=== PATIENT | female | born 1980 | race Two or more races ===

== ENCOUNTER 2017-11-19 14:09 | Emergency (ER) | payer OTHER, SELFPAY ==
[~2017-11-19] VITALS: Ht 154.9 cm; Wt 95.4 kg
[2017-11-19 14:15] VITALS: BP 149/106
[2017-11-19] MEDS ORDERED: PROPARACAINE OPHTH 0.5%, 15ML ONE (14:25)
[2017-11-19] MEDS ORDERED: DIPH,PERTUSS(ACELL),TET VAC/PF 0.5 ML IM-VACC ONE ×2 (15:02→15:30)
== END 2017-11-19 15:11 | disposition home or self-care (01) ==
LOC: ED 15:00
DX: S05.02XA Injury of conjunctiva and corneal abrasion without foreign body, left eye, initial encounter (principal); X58.XXXA Exposure to other specified factors, initial encounter; Y93.89 Activity, other specified; Y92.89 Other specified places as the place of occurrence of the external cause; Y99.8 Other external cause status
CPT/HCPCS: 90471; 90715

== ENCOUNTER 2018-02-13 20:38 | Emergency (ER) | payer OTHER ==
[~2018-02-13] VITALS: Ht 154.9 cm; Wt 97.0 kg
[2018-02-13 20:40] VITALS: BP 139/97
[2018-02-13] MEDS ORDERED: FLUORESCEIN/BENOXINATE 5 ML DROPS OP ONE (21:00)
== END 2018-02-13 21:33 | disposition home or self-care (01) ==
LOC: ED 21:05
DX: S05.02XA Injury of conjunctiva and corneal abrasion without foreign body, left eye, initial encounter (principal); X58.XXXA Exposure to other specified factors, initial encounter; Y93.89 Activity, other specified; Y92.89 Other specified places as the place of occurrence of the external cause; Y99.8 Other external cause status
CPT/HCPCS: 99283

== ENCOUNTER 2019-03-07 10:30 | Emergency (ER) | payer OTHER ==
[~2019-03-07] VITALS: Ht 154.9 cm; Wt 101.0 kg
[2019-03-07 10:31] VITALS: BP 138/85
[2019-03-07 10:59] LABS: MICROSCOPIC NOT IND
[2019-03-07 12:02] LABS: CULTURE INDICATED? NO
--- NOTE | 2019-03-07 12:03 | NUR ---
LAB CALLED REGARDING DELAY ON URINALYSIS. PER TECH, COMPUTER DELAY. CONTINUE TO AWAIT RESULTS.
== END 2019-03-07 12:40 | disposition home or self-care (01) ==
LOC: ED 12:32
DX: S39.012A Strain of muscle, fascia and tendon of lower back, initial encounter (principal); I10 Essential (primary) hypertension; X58.XXXA Exposure to other specified factors, initial encounter; Y93.89 Activity, other specified; Y92.89 Other specified places as the place of occurrence of the external cause; Y99.8 Other external cause status
CPT/HCPCS: 81003; 99283

== ENCOUNTER 2019-07-18 17:31 | Emergency (ER) | payer OTHER ==
[~2019-07-18] VITALS: Ht 154.9 cm; Wt 103.7 kg
[2019-07-18 18:00] VITALS: BP 174/115
[2019-07-18] MEDS ORDERED: HYDROcodone/APAP 5/325 TABLET PO ONE (18:30)
[2019-07-18] MEDS ORDERED: HYDROcodone/APAP 5/325 TABLET ONE (18:37)
== END 2019-07-18 19:27 | disposition home or self-care (01) ==
LOC: ED 19:00
DX: K04.7 Periapical abscess without sinus (principal); I10 Essential (primary) hypertension; F17.200 Nicotine dependence, unspecified, uncomplicated
CPT/HCPCS: 99282

== ENCOUNTER 2019-12-17 13:49 | Emergency (ER) | payer OTHER ==
[~2019-12-17] VITALS: Ht 154.9 cm; Wt 100.0 kg
[2019-12-17 16:06] LABS: BASOPHILS # (AUTO) 0.03 x10^3/uL (0-0.1); BASOPHILS % (AUTO) 1 % (0-1); EOSINOPHILS # (AUTO) 0.25 x10^3/uL (0-0.4); EOSINOPHILS % (AUTO) 3 % (1-7); LYMPHOCYTES # (AUTO) 2.75 x10^3/uL (1-3.4); LYMPHOCYTES % (AUTO) 36 % (22-44); MD NO; MEAN CORPUSCULAR HEMOGLOBIN 26.1 pg (27.0-34.8); MEAN CORPUSCULAR HGB CONC 32.7 g/dL (32.4-35.8); MEAN CORPUSCULAR VOLUME 79.6 fL (80-100); MEAN PLATELET VOLUME 8.3 fL (7.4-10.4); MONOCYTES % (AUTO) 7 % (2-9); NEUTROPHILS # (AUTO) 4.04 x10^3/uL (1.8-6.8); NEUTROPHILS % (AUTO) 53 % (42-75); PLATELET COUNT 373 x10^3/uL (130-400); RED BLOOD COUNT 5.19 x10^6/uL (3.82-5.3)
[2019-12-17 16:13] LABS: ALBUMIN 3.6 g/dL (3.4-5.0); ANION GAP 8 mmol/L (5-15); CALCIUM 9.4 mg/dL (8.5-10.1); CHLORIDE 104 mmol/L (98-107)
[2019-12-17 16:19] VITALS: BP 113/92
== END 2019-12-17 17:32 | disposition home or self-care (01) ==
LOC: ED 15:51
DX: R06.00 Dyspnea, unspecified (principal); Z20.828 Contact with and (suspected) exposure to other viral communicable diseases; R50.9 Fever, unspecified; R05 Cough; R94.31 Abnormal electrocardiogram [ECG] [EKG]; I10 Essential (primary) hypertension
CPT/HCPCS: 36415; 71045; 80048; 82040; 85025; 87635; 93005; 99285

== ENCOUNTER 2020-05-01 13:13 | Emergency (ER) | payer OTHER ==
[~2020-05-01] VITALS: Ht 154.9 cm; Wt 109.7 kg
[2020-05-01 13:17] VITALS: BP 130/80
[2020-05-01] MEDS ORDERED: HYDROcodone/APAP 5/325 TABLET ONE (13:40)
[2020-05-01] MEDS ORDERED: HYDROcodone/APAP 5/325 TABLET PO ONE (14:00)
== END 2020-05-01 13:56 | disposition home or self-care (01) ==
LOC: ED 13:35
DX: K02.9 Dental caries, unspecified (principal); K08.89 Other specified disorders of teeth and supporting structures; R50.9 Fever, unspecified
CPT/HCPCS: 99283

== ENCOUNTER 2020-07-28 21:08 | Emergency (ER) | payer OTHER ==
[~2020-07-28] VITALS: Ht 154.9 cm; Wt 111.0 kg
[2020-07-28 21:12] VITALS: BP 143/96
[2020-07-28] MEDS ORDERED: HYDROcodone/APAP 5/325 TABLET ONE (22:20)
[2020-07-28] MEDS ORDERED: HYDROcodone/APAP 5/325 TABLET PO ONE (22:30)
== END 2020-07-28 22:30 | disposition home or self-care (01) ==
LOC: ED 22:10
DX: K02.9 Dental caries, unspecified (principal); R51.9 Headache, unspecified
CPT/HCPCS: 99283

== ENCOUNTER 2020-11-01 18:55 | Emergency (ER) | payer OTHER ==
[~2020-11-01] VITALS: Ht 162.6 cm; Wt 105.0 kg
[2020-11-01 19:40] LABS: BASOPHILS % (AUTO) 1 % (0-1); EOSINOPHILS % (AUTO) 0 % (1-7); LYMPHOCYTES % (AUTO) 21 % (22-44); MEAN CORPUSCULAR HEMOGLOBIN 24.2 pg (27.0-34.8); MEAN CORPUSCULAR HGB CONC 32.2 g/dL (32.4-35.8); MONOCYTES % (AUTO) 3 % (2-9); NEUTROPHILS % (AUTO) 75 % (42-75); PLATELET COUNT 353 x10^3/uL (130-400); RED BLOOD COUNT 5.08 x10^6/uL (3.82-5.3); RED CELL DISTRIBUTION WIDTH 17.6 % (9.6-15.2)
[2020-11-01 19:51] LABS: ALANINE AMINOTRANSFERASE 26 U/L (12-78); ALBUMIN 3.4 g/dL (3.4-5.0); ANION GAP 7 mmol/L (5-15); CALCIUM 8.5 mg/dL (8.5-10.1); CHLORIDE 111 mmol/L (98-107); CREATININE 0.74 mg/dL (0.55-1.02)
[2020-11-01 19:52] LABS: ALKALINE PHOSPHATASE 122 U/L (45-117); BILIRUBIN,TOTAL 0.2 mg/dL (0.2-1.0); TOTAL PROTEIN 8.5 g/dL (6.4-8.2)
[2020-11-01 19:53] LABS: SALICYLATE LEVEL < 1.7 mg/dL (2.8-20.0)
[2020-11-01 21:44] VITALS: BP 104/66
--- NOTE | 2020-11-01 22:00 | NUR ---
PT AMBULATORY WITH STEADY GAIT WITH THIS RN TO BATHROOM.
--- NOTE | 2020-11-01 22:17 | NUR ---
Patient given discharge instructions and they have confirmed that they understand the instructions. Patient ambulatory with steady gait. NAD, all questions answered appropriately, denies additional needs at this time. No personal belongings left in room after discharge.
== END 2020-11-01 22:35 | disposition home or self-care (01) ==
LOC: ED 22:32
DX: F10.121 Alcohol abuse with intoxication delirium (principal); G92 Toxic encephalopathy; I10 Essential (primary) hypertension; Y90.0 Blood alcohol level of less than 20 mg/100 ml
CPT/HCPCS: 36415; 80053; 80299; 80320; 80329; 85025; 99283; G0480